=== PATIENT | male | born 1950 | race Caucasian/White ===

== ENCOUNTER 2018-05-13 18:34 | Emergency (ER) | payer MEDICARE ==
[~2018-05-13] VITALS: Ht 170.2 cm; Wt 95.5 kg
[2018-05-13] MEDS ORDERED: BACTDSB PO (18:43)
[2018-05-13 21:36] LABS: BASOPHILS % (AUTO) 0.7 % (0.0-2.0); HEMATOCRIT 44.8 % (41-53); HEMOGLOBIN 14.9 g/dL (13.5-17.5); LYMPHOCYTES # (AUTO) 2.2 K/uL (1.0-4.8); LYMPHOCYTES % (AUTO) 23.4 % (22.0-44.0); MEAN CORPUSCULAR HEMOGLOBIN 29.4 pg (26.0-34.0); MEAN CORPUSCULAR HGB CONC 33.3 G/dL (31.0-37.0); MEAN CORPUSCULAR VOLUME 88 fL (80-100); MONOCYTES # (AUTO) 0.9 K/uL (0.1-1.0); MONOCYTES % (AUTO) 9.5 % (2.0-9.0); NEUTROPHILS % (AUTO) 64.4 % (40.0-70.0); PLATELET COUNT (AUTO) 365 K/uL (150-450); RED BLOOD CELL COUNT(AUTO) 5.08 MIL/uL (4.50-5.90); RED CELL DISTRIBUTION WIDTH 13.4 % (11.5-14.5)
[2018-05-13] MEDS ORDERED: LIDOCAINE 1% 10 ML VIAL INJ ONE (21:45)
[2018-05-13 21:48] LABS: ANION GAP 7 mmol/L (8-16); CALCIUM, TOTAL 9.8 mg/dL (8.8-10.5); CARBON DIOXIDE 27 mmol/L (22-29); CHLORIDE 99 mmol/L (98-107); CREATININE 1.04 mg/dL (0.60-1.30); GLOMERULAR FILTR. RATE CALC > 60 mL/min (>60); GLUCOSE,RANDOM 135 mg/dL (70-110); POTASSIUM 4.3 mmol/L (3.5-5.1); SODIUM SERUM 133 mmol/L (136-145); UREA NITROGEN, BLOOD 15 mg/dL (7-18)
[2018-05-13 21:50] LABS: ALBUMIN 3.4 g/dL (3.4-5.0)
[2018-05-13 22:03] LABS: LACTIC ACID 1.6 mmol/L (0.4-2.0)
[2018-05-13 22:09] LABS: ALANINE AMINOTRANSFERASE 36 U/L (12-78); ALKALINE PHOSPHATASE 112 U/L (46-116); ASPARTATE AMINOTRANSFERASE 26 U/L (15-37); BILIRUBIN,TOTAL 0.4 mg/dL (0.1-1.0); TOTAL PROTEIN, SERUM 7.9 g/dL (6.4-8.2)
[2018-05-13] MEDS ORDERED: CefTRIAXone 1 GM/DEXTROSE 50 ML IV ONE (22:15)
[2018-05-13] MEDS ORDERED: KETOROLAC TROMETHAMINE 30 MG/ML VIAL IVP ONE (22:15)
[2018-05-13 23:00] VITALS: BP 135/84
[2018-05-15] MEDS ORDERED: AMLO-511 PO (14:16)
[2018-05-15] MEDS ORDERED: ATOR40TA28 PO (14:16)
[2018-05-15] MEDS ORDERED: LISI-660 PO (14:16)
[2018-05-15] MEDS ORDERED: GLYB5 PO (14:16)
[2018-05-15] MEDS ORDERED: METF-960 PO (14:16)
[2018-05-15] MEDS ORDERED: OMEP20 PO (14:16)
[2018-05-18] MEDS ORDERED: LEVO500 PO (09:59)
[2018-05-18] MEDS ORDERED: CLIN300C3 PO (10:00)
== END 2018-05-13 23:00 | disposition home or self-care (01) ==
LOC: EMS 18:35
DX: L02.211 Cutaneous abscess of abdominal wall (principal); L03.311 Cellulitis of abdominal wall; E11.9 Type 2 diabetes mellitus without complications; E78.00 Pure hypercholesterolemia, unspecified; I10 Essential (primary) hypertension
CPT/HCPCS: 10061; 36415; 80053; 82962; 83605; 85025; 85610; 87040; 87070; 96365; 96375; 99284; J0696; J1885; J3490; 10060